=== PATIENT | male | born 1995 | race African-American/Black ===

== ENCOUNTER 2019-06-01 14:07 | Emergency (ER) | payer SELFPAY ==
[~2019-06-01] VITALS: Ht 190.5 cm; Wt 129.5 kg
[2019-06-01 14:20] VITALS: BP 140/84
--- NOTE | 2019-06-01 14:56 | RAD ---
4 view study of the right knee Clinical indications: Right knee pain after falling on ice today. Has had previous knee surgeries. FINDINGS: No acute fracture or dislocation or lytic process is seen. The patella is normally aligned. No right knee joint effusion is seen. Mild degenerative spurring of the patellofemoral joint compartment is seen without significant joint space narrowing. There is mild degenerative spurring without significant joint space narrowing involving the medial and lateral tibiofemoral joint compartments. An ACL reconstruction is evident. IMPRESSION: No acute osseous abnormality. Electronically signed by: Alfredo Palacios MD (06/01/2019 2:53 PM) [facility]
[2019-06-01] MEDS ORDERED: METH4TAB2 PO (15:07)
[2019-06-01] MEDS ORDERED: DICL50TA2 PO (15:07)
[2019-06-01] MEDS ORDERED: NAPROXEN 500 MG TABLET PO STA (15:07)
--- NOTE | 2019-06-01 15:07 | PHYS DOC ---
Past Medical History Past Medical History: No Pertinent History Past Surgical History: Other Additional Past Surgical Histo: right knee surgery Smoking Status: Current Every Day Smoker Additional Information: 0.5/ppd Alcohol Use: Occasionally Social History Narrative: last used today Adult General Chief Complaint Chief Complaint: MECHANICAL FALL HPI HPI Patient is a 23 year old male who presents to the ED today complaining of 5 out of 10 right anterior knee pain that began this afternoon after he fell down the [place] station. Patient denies any loss of consciousness, denies hitting his head on the ground. Describes the pain as throbbing and intermittent worse on weight- bearing. Denies anything specifically relieving the pain. Review of Systems Review of Systems Constitutional: Denies fever or chills [] Musculoskeletal: Reports right knee pain Integument: Denies rash or skin lesions [] Neurologic: Denies headache, focal weakness or sensory changes [] All other systems were reviewed and found to be within normal limits, except as documented in this note. Allergies Allergies Allergies Coded Allergies Type Severity Reaction Last Updated Verified No Known Drug Allergies 06/01/19 No Physical Exam Physical Exam Constitutional: Well developed, well nourished, no acute distress, non-toxic a ppearance. [] Skin: Warm, dry, no erythema, no rash. [] Back: No tenderness, no CVA tenderness. [] Extremities: Right knee with no obvious deformity, multiple old healed incisions noted on the right knee from previous surgeries. Slight tenderness on palpation of the right anterior knee. Full range of motion to the right knee, negative Ravindra sign, negative Tom's, negative anterior-posterior drawer sign. +2 right pedal pulse. Cap refill less than 2 seconds the right lower extremity Neurologic: Alert and oriented X 3, normal motor function, normal sensory function, no focal deficits noted. [] Psychologic: Affect normal, judgement normal, mood normal. [] Current Patient Data Vital Signs Vital Signs Date Time Temp Pulse Resp B/P (MAP) Pulse Ox O2 Delivery O2 Flow Rate FiO2 06/01/19 14:20 97.8 95 20 140/84 (102) 98 Room Air 97.8 EKG EKG [] Radiology/Procedures Radiology/Procedures []PROCEDURE: KNEE RIGHT 4V 4 view study of the right knee Clinical indications: Right knee pain after falling on ice today. Has had previous knee surgeries. FINDINGS: No acute fracture or dislocation or lytic process is seen. The patella is normally aligned. No right knee joint effusion is seen. Mild degenerative spurring of the patellofemoral joint compartment is seen without significant joint space narrowing. There is mild degenerative spurring without significant joint space narrowing involving the medial and lateral tibiofemoral joint compartments. An ACL reconstruction is evident. IMPRESSION: No acute osseous abnormality. Electronically signed by: Pretty Palacios MD (06/01/2019 2:53 PM) [facility] DICTATED and SIGNED BY: PRETTY PALACIOS MD DATE: 06/01/19 1453 Course & Med Decision Making Course & Med Decision Making Pertinent Labs and Imaging studies reviewed. (See chart for details) This is a 23-year-old male patient presented to the ED today with right knee pain status post falling. Right knee x-rays interpreted by radiologist are negative for any acute findings. Gilles bandage applied to the right knee by me. Neurovascular exam done by me is normal. Ice elevation encouraged. Follow-up with orthopedic doctor in 1-2 weeks if pain persists. Dragon Disclaimer Dragon Disclaimer This electronic medical record was generated, in whole or in part, using a voice recognition dictation system. Departure Departure Impression: Primary Impression: Fall from standing Additional Impression: Right knee pain Disposition: 01 HOME, SELF-CARE Condition: STABLE Referrals: NO PCP (PCP) EMMA VENTURA MD follow up in 1-2 weeks Patient Instructions: Knee Pain, [id number] Additional Instructions: You were seen in the emergency room for right knee pain after falling. Your right knee x-rays are negative for any acute findings. Wear the Gilles wrap provided as tolerated and needed. Try to ice and elevate the extremity. Follow up with orthopedic doctor provided all your own orthopedic doctor in 1-2 weeks Scripts Diclofenac Potassium (DICLOFENAC POTASSIUM) 50 Mg Tablet 1 TAB PO BID, #20 TAB 0 Refills Prov: MUTUNGAJJ POUND KEEPER 06/01/19 Methylprednisolone (MEDROL) 4 Mg Tab.ds.pk 1 PKG PO UD, #1 PKG Prov: JJ FRIEND POUND KEEPER 06/01/19 Problem Qualifiers Primary Impression: Fall from standing Encounter type: initial encounter Qualified Codes: W19.XXXA - Unspecified fall, initial encounter Additional Impression: Right knee pain Chronicity: acute Qualified Codes: M25.561 - Pain in right knee MUTUNGA,JJ POUND KEEPER Jun 01, 2019 15:07
[2019-06-01] MEDS ORDERED: HYDROcodone/APAP 5/325MG 1 TAB TABLET PO ONE (15:15)
== END 2019-06-01 15:34 | disposition home or self-care (01) ==
LOC: ER 14:07
DX: G89.11 Acute pain due to trauma (principal); M25.561 Pain in right knee; F17.200 Nicotine dependence, unspecified, uncomplicated; Z98.890 Other specified postprocedural states; W18.39XA Other fall on same level, initial encounter; Y93.89 Activity, other specified; Y92.89 Other specified places as the place of occurrence of the external cause; Y99.8 Other external cause status
CPT/HCPCS: 73564; 99283

== ENCOUNTER 2019-09-10 18:41 | Emergency (ER) | payer SELFPAY ==
[~2019-09-10] VITALS: Ht 188 cm; Wt 150.0 kg
[~2019-09-10 18:41] MED LIST: DICL50TA2 PO; METH4TAB2 PO
[2019-09-10 18:49] VITALS: BP 151/84
--- NOTE | 2019-09-10 19:41 | RAD ---
EXAM: Right hand, 3 views. HISTORY: Punched a wall. COMPARISON: None. FINDINGS: 3 views of right hand are obtained. There is a comminuted fracture involving the triquetrum. There may also be a nondisplaced fracture the base of the fifth metacarpal. IMPRESSION: Comminuted fracture of the triquetrum and possible nondisplaced fracture at the base of the fifth metacarpal. Electronically signed by: Ashleigh Orr MD (09/10/2019 7:38 PM) [facility]
[2019-09-10] MEDS ORDERED: HYDR-3164 PO (19:58)
--- NOTE | 2019-09-10 19:58 | PHYS DOC ---
Past Medical History Past Medical History: No Pertinent History Past Surgical History: Other Additional Past Surgical Histo: right knee surgery Smoking Status: Current Every Day Smoker Alcohol Use: Occasionally General Adult EDM: Chief Complaint: WRIST PAIN HPI: HPI: Patient is a 24 year old male who presents with complaint of injury to his right wrist when he punched a wall. Patient states that he was angry with his brother and did not want to punch his brother so he punched the wall a few times. He denies any other injuries. He rates pain at an 8 out of 10 and states the pain is worsened with movement of the hand and wrist [] Review of Systems: Review of Systems: Constitutional: Denies fever or chills. [] Respiratory: Denies cough or shortness of breath. [] Cardiovascular: Denies chest pain or edema. [] Musculoskeletal: Complains of right wrist/hand pain. [] Integument: Denies rash. [] Neurologic: Denies headache, focal weakness or sensory changes. [] Heart Score: Risk Factors: Risk Factors: DM, Current or recent (<one month) smoker, HTN, HLP, family history of CAD, obesity. Risk Scores: Score 0 - 3: 2.5% MACE over next 6 weeks - Discharge Home Score 4 - 6: 20.3% MACE over next 6 weeks - Admit for Clinical Observation Score 7 - 10: 72.7% MACE over next 6 weeks - Early Invasive Strategies Allergies: Allergies: Allergies Coded Allergies Type Severity Reaction Last Updated Verified No Known Drug Allergies 06/01/19 No Physical Exam: PE: Constitutional: Well developed, well nourished, no acute distress, non-toxic appearance. [] Cardiovascular:Heart rate regular rhythm, no murmur [] Lungs & Thorax: Bilateral breath sounds clear to auscultation [] Extremities: Exam of right wrist and hand demonstrates soft tissue swelling and tenderness, particularly at the base of the fifth metacarpal. [] Neurologic: Alert and oriented X 3, no focal deficits noted. [] Current Patient Data: Vital Signs: Vital Signs Date Time Temp Pulse Resp B/P (MAP) Pulse Ox O2 Delivery O2 Flow Rate FiO2 09/10/19 18:49 98.2 91 16 151/84 (106) 100 Room Air 98.2 EKG: EKG: [] Radiology/Procedures: Radiology/Procedures: [] Impression: PROCEDURE: HAND RIGHT 3V EXAM: Right hand, 3 views. HISTORY: Punched a wall. COMPARISON: None. FINDINGS: 3 views of right hand are obtained. There is a comminuted fracture involving the triquetrum. There may also be a nondisplaced fracture the base of the fifth metacarpal. IMPRESSION: Comminuted fracture of the triquetrum and possible nondisplaced fracture at the base of the fifth metacarpal. Electronically signed by: Ashleigh Orr MD (09/10/2019 7:38 PM) [facility] [place] Course & Med Decision Making: Course & Med Decision Making Pertinent Labs and Imaging studies reviewed. (See chart for details) Patient moved to room upon arrival was evaluated by ER medical staff after which an x-ray of the right hand was obtained. X-ray demonstrates comminuted f racture of the triquetrum. Patient placed in volar OCL splint by ER nurse. Good fit and alignment is noted post splint placement with excellent capillary refill. Dragon Disclaimer: Dragon Disclaimer: This electronic medical record was generated, in whole or in part, using a voice recognition dictation system. Departure Departure Impression: Primary Impression: Fracture of triquetrum of right wrist Qualified Codes: S62.111A - Displaced fracture of triquetrum [cuneiform] bone, right wrist, initial encounter for closed fracture Disposition: 01 HOME, SELF-CARE Condition: STABLE Referrals: NO PCP (PCP) EMMA VENTURA MD Patient Instructions: Wrist Fracture Scripts Hydrocodone/Apap 5-325 (NORCO 5-325 TABLET) 1 Each Tablet 1-2 EACH PO PRN Q6HRS PRN for PAIN, #15 as needed for pain Prov: ANGELES SILVA Jr. DO 09/10/19 ANGELES SILVA Jr. DO September 10, 2019 19:58
== END 2019-09-10 20:14 | disposition home or self-care (01) ==
LOC: ER 18:41
DX: S62.111A Displaced fracture of triquetrum [cuneiform] bone, right wrist, initial encounter for closed fracture (principal); R60.0 Localized edema; F17.200 Nicotine dependence, unspecified, uncomplicated; Z98.890 Other specified postprocedural states; Y33.XXXA Other specified events, undetermined intent, initial encounter; Y93.89 Activity, other specified; Y92.89 Other specified places as the place of occurrence of the external cause; Y99.8 Other external cause status
CPT/HCPCS: 29125; 73130; 99283; A4565

== ENCOUNTER 2019-10-13 23:30 | Emergency (ER) | payer SELFPAY ==
[~2019-10-13] VITALS: Ht 190.5 cm; Wt 137.7 kg
[~2019-10-13 23:30] MED LIST changes: +HYDR-3164 PO
--- NOTE | 2019-10-13 23:58 | PHYS DOC ---
Past Medical History Past Medical History: No Pertinent History Past Surgical History: Other Additional Past Surgical Histo: right knee surgery Smoking Status: Current Every Day Smoker Alcohol Use: Occasionally General Adult EDM: Chief Complaint: SEXUALLY TRANSMITTED DISEASE HPI: HPI: Patient is a 24 year old male who presents with report that he was just recently exposed to chlamydia. Patient states that he and his had invited another woman into their bedroom and after having sex with this woman, she informed him and his that she has chlamydia. Patient denies any symptoms of STD at this time. [] Review of Systems: Review of Systems: Constitutional: Denies fever or chills. [] Respiratory: Denies cough or shortness of breath. [] Cardiovascular: Denies chest pain or edema. [] : Denies dysuria. [] Musculoskeletal: Denies back pain or joint pain. [] Integument: Denies rash. [] Heart Score: Risk Factors: Risk Factors: DM, Current or recent (<one month) smoker, HTN, HLP, family his tory of CAD, obesity. Risk Scores: Score 0 - 3: 2.5% MACE over next 6 weeks - Discharge Home Score 4 - 6: 20.3% MACE over next 6 weeks - Admit for Clinical Observation Score 7 - 10: 72.7% MACE over next 6 weeks - Early Invasive Strategies Allergies: Allergies: Allergies Coded Allergies Type Severity Reaction Last Updated Verified No Known Drug Allergies 06/01/19 No Physical Exam: PE: Constitutional: Well developed, well nourished, no acute distress, non-toxic appearance. [] HENT: Normocephalic, atraumatic, bilateral external ears normal, oropharynx moist, no oral exudates, nose normal. [] Eyes: PERRLA, EOMI, conjunctiva normal, no discharge. [] Neck: Normal range of motion, no tenderness, supple, no stridor. [] Cardiovascular:Heart rate regular rhythm, no murmur [] Lungs & Thorax: Bilateral breath sounds clear to auscultation [] Abdomen: Bowel sounds normal, soft, no tenderness, no masses, no pulsatile masses. [] Skin: Warm, dry, no erythema, no rash. [] Back: No tenderness, no CVA tenderness. [] Extremities: No tenderness, no cyanosis, no clubbing, ROM intact, no edema. [] Neurologic: Alert and oriented X 3, normal motor function, normal sensory functi on, no focal deficits noted. [] Psychologic: Affect normal, judgement normal, mood normal. [] EKG: EKG: [] Radiology/Procedures: Radiology/Procedures: [] Course & Med Decision Making: Course & Med Decision Making Pertinent Labs and Imaging studies reviewed. (See chart for details) [] Dragon Disclaimer: Dragon Disclaimer: This electronic medical record was generated, in whole or in part, using a voice recognition dictation system. Departure Departure Impression: Primary Impression: Exposure to STD Disposition: 01 HOME, SELF-CARE Condition: STABLE Referrals: NO PCP (PCP) Patient Instructions: Sexually Transmitted Disease Justicifation of Admission Dx: Justifications for Admission: Justification of Admission Dx: Comment: (Not applicable) ANGELES SILVA Jr. DO Oct 13, 2019 23:58
[2019-10-14] MEDS ORDERED: AZITHROMYCIN 250 MG TABLET. PO ONE (00:15)
[2019-10-14] MEDS ORDERED: cefTRIAXone IM 250 MG VIAL IM ONE (00:15)
[2019-10-14 00:30] VITALS: BP 152/65
== END 2019-10-14 00:28 | disposition home or self-care (01) ==
LOC: ER 23:30
DX: Z20.2 Contact with and (suspected) exposure to infections with a predominantly sexual mode of transmission (principal); F17.200 Nicotine dependence, unspecified, uncomplicated; Z98.890 Other specified postprocedural states
CPT/HCPCS: 96372; 99283; J0696

== ENCOUNTER → 2020-06-10 | Outpatient (CLI) | payer OTHER ==
--- NOTE | 2020-06-10 16:50 | RAD ---
Right knee 2 views INDICATION: Bilateral knee pain from calyceal complications. COMPARISON: Right knee x-rays of 06/01/2019 FINDINGS: Surgical changes from ACL reconstruction are redemonstrated with degenerative changes in the medial a nd to a lesser extent, lateral compartments of the right knee. No fracture or aggressive appearing corey ny lesions. Soft tissues are unremarkable. Mild deformity to the proximal fibula is stable and compat ible with an old, healed fracture. IMPRESSION: Status post ACL reconstruction with findings suggesting a healed fracture of the proximal fibula and mild tricompartmental degenerative changes of the right, similar to prior. No acute superimposed find ings. Electronically signed by: Todd Ward MD (06/10/2020 4:48 PM) [id number]
== END ==
LOC: RAD 09:33
PROVIDERS: ATTEND Surgery
DX: M17.11 Unilateral primary osteoarthritis, right knee (principal)
CPT/HCPCS: 73560

== ENCOUNTER 2021-05-06 16:21 | Emergency (ER) | payer SELFPAY ==
[~2021-05-06] VITALS: Ht 188 cm; Wt 144.7 kg
[2021-05-06 16:35] VITALS: BP 133/86
--- NOTE | 2021-05-06 17:01 | ED.ADGEN ---
Past Medical History Past Medical History: No Pertinent History Additional Past Medical Histor: MOOD DISORDER Past Surgical History: Other Additional Past Surgical Histo: right knee surgery, WISDOM TEETH Smoking Status: Current Every Day Smoker Additional Information: 4 cigarettes/day Alcohol Use: None General Adult EDM: Chief Complaint: HAND PROBLEM HPI: HPI: Patient is a 25 year old male coming in for right hand pain and swelling. Patient states that 2 days ago he was angry and punched a drywall wall on the corner. He is complaining of pain and swelling around his thumb. Denies any open wounds. Patient states he has similar injury about a year ago from punching a wall but that time was on the ulnar side of his hand. Patient states he felt a pop. He is right-handed Review of Systems: Review of Systems: All other systems within normal limits except for as noted in the HPI Allergies: Allergies: Allergies Coded Allergies Type Severity Reaction Last Updated Verified No Known Drug Allergies 05/06/21 No Physical Exam: PE: Constitutional: Well developed, well nourished, no acute distress, non-toxic appearance. [] HENT: Normocephalic, atraumatic, bilateral external ears normal, nose normal. [] Eyes: PERRLA, conjunctiva normal, no discharge. [] Neck: No rigidity, supple, no stridor. [] Cardiovascular: Regular rate and rhythm, brisk cap refill [] Lungs & Thorax: Non labored symmetric respirations, no tachypnea or respiratory distress [] Abdomen: Soft, nondistended. Skin: Warm, dry, no erythema, no rash. [] Back: Unremarkable Extremities: No deformities, range of motion grossly intact, no lower extremity edema. Pain and swelling over right first metacarpal and thumb [] Neurologic: Alert and oriented X 3, no focal deficits noted. [] Psychologic: Affect normal, judgement normal, mood normal. [] Current Patient Data: Vital Signs: Vital Signs Date Time Temp Pulse Resp B/P (MAP) Pulse Ox O2 Delivery O2 Flow Rate FiO2 05/06/21 16:35 97.7 88 18 133/86 (102) 97 Room Air 97.7 EKG: EKG: [] Heart Score: C/O Chest Pain: No Risk Factors: Risk Factors: DM, Current or recent (<one month) smoker, HTN, HLP, family history of CAD, obesity. Risk Scores: Score 0 - 3: 2.5% MACE over next 6 weeks - Discharge Home Score 4 - 6: 20.3% MACE over next 6 weeks - Admit for Clinical Observation Score 7 - 10: 72.7% MACE over next 6 weeks - Early Invasive Strategies Radiology/Procedures: Radiology/Procedures: [facility] [address] [place] [address] IMAGING REPORT Signed PATIENT: TOBIAS ALLRED ACCOUNT: [id number] : 1995 LOCATION: ER AGE: 25 SEX: M EXAM STATUS: REG ER ORD. PHYSICIAN: JO HU MD REASON: injury, pain and swelling near thumb PROCEDURE: HAND RIGHT 3V EXAM: XR HAND_RIGHT 3 VIEWS 05/06/2021 5:03 PM CLINICAL INDICATION: Injury, pain and swelling of the COMPARISON: Right hand radiograph 09/18/2019 TECHNIQUE: PA, oblique, and lateral views of the right hand FINDINGS: There is a comminuted intra-articular fracture at the base of the fir st metacarpal with 9 mm radial displacement/subluxation of the distal fragment. No other fracture or malalignment. Joint spaces are maintained. No focal soft tissue abnormality. IMPRESSION: Comminuted intra-articular fracture at the base of the first met acarpal with radial displacement/subluxation of the distal fragment. Electronically signed by: Jo Sanchez MD (05/06/2021 5:22 PM) [id number] DICTATED and SIGNED BY: JO SANCHEZ MD DATE: 05/06/21 [id number] [] Course & Med Decision Making: Course & Med Decision Making Pertinent Labs and Imaging studies reviewed. (See chart for details) Discussed with orthopedic doctor Dr. Gray, there is no one here who does hands. Due to the pandemic there are no available beds in the [place] area. Patient states that although he is listed as self-pay he thinks that they have Medicaid. He was given information about how to follow-up with a hand surgeon and return precautions if he is unable to get an appointment or symptoms worsen. [] Olga Disclaimer: Olga Disclaimer: This electronic medical record was generated, in whole or in part, using a voice recognition dictation system. Departure Departure Impression: Primary Impression: Thumb fracture Disposition: HOME / SELF CARE / HOMELESS Condition: STABLE Referrals: NO PCP (PCP) Patient Instructions: Cast or Splint Care Additional Instructions: [facility] Address: [address] [place] [address] Appointments: [email or web address] Or hand surgeon of your choice within 1-3 days JO HU MD May 06, 2021 17:01
--- NOTE | 2021-05-06 17:26 | RAD ---
EXAM: XR HAND_RIGHT 3 VIEWS 05/06/2021 5:03 PM CLINICAL INDICATION: Injury, pain and swelling of the COMPARISON: Right hand radiograph 09/18/2019 TECHNIQUE: PA, oblique, and lateral views of the right hand FINDINGS: There is a comminuted intra-articular fracture at the base of the first metacarpal with 9 mm radial displacement/subluxation of the distal fragment. No other fracture or malalignment. Joint s paces are maintained. No focal soft tissue abnormality. IMPRESSION: Comminuted intra-articular fracture at the base of the first metacarpal with radial disp lacement/subluxation of the distal fragment. Electronically signed by: Jo Sanchez MD (05/06/2021 5:22 PM) [id number]
== END 2021-05-06 18:21 | disposition home or self-care (01) ==
LOC: ER 16:21
DX: S62.521A Displaced fracture of distal phalanx of right thumb, initial encounter for closed fracture (principal); W22.01XA Walked into wall, initial encounter; Y93.89 Activity, other specified; Y92.89 Other specified places as the place of occurrence of the external cause; Y99.8 Other external cause status
CPT/HCPCS: 29125; 73130; 99283